=== PATIENT | female | born 1950 | race Caucasian/White ===

== ENCOUNTER → 2020-05-19 08:59 | Outpatient (CLI) | payer MEDICARE, SELFPAY ==
[2020-05-20 07:56] LABS: COVID19 Sendout Not Detected (Not Detect)
== END ==
PROVIDERS: Visit Provider Nurse Practitioner
DX: Z01.812 Encounter for preprocedural laboratory examination (principal)
CPT/HCPCS: 87635

== ENCOUNTER 2020-05-23 11:45 | Inpatient (IN) | payer MEDICARE, SELFPAY ==
[2020-05-15 08:55] VITALS: BMI 23.8
[2020-05-22] VITALS (20 sets, daily range): BP systolic 104–136; BP diastolic 48–74; PULSE 69–91; RESP 8–17; TEMP 35.5–36.4; O2SAT 88–100; BMI 23.8
--- NOTE | 2020-05-22 | DI.RAD.S_ITS ---
PROCEDURE: XR LUMBAR SPINE 2-3V INDICATIONS: L4-5, L5-S1 TLIF TECHNIQUE: 2 views of the lumbar spine were acquired. COMPARISON: None. FINDINGS: Bones: Intraoperative images demonstrate postsurgical changes compatible with L4-L5 and L5-S1 TLIF. Orthopedic hardware is intact. Soft tissues: Overlying bowel gas pattern is normal. No suspicious soft tissue calcifications. IMPRESSION: Expected postsurgical change for L4-L5 and L5-S1 TLIF. Dictated by: Shereen Veras MD, PhD on 05/22/2020 at 11:23 Approved by: Shereen Veras MD, PhD on 05/22/2020 at 11:23
[2020-05-22] MEDS: LACTATED RINGERS 1,000 ML 42 ML IV ×2 (07:14→09:54)
--- NOTE | 2020-05-22 07:22 | PM.HP.1 ---
History of Present Illness History of Present Illness Date Patient Seen: 05/22/20 Time Patient Seen: 07:22 Chief complaint: Tranlaminar interbody Fusion/Lamintomy Narrative: 70-year-old female with pain in the back in the legs. She has had ongoing low back pain for many years but last fall started having increasing pain going down her legs. This goes down the anterior thigh as well as the posterolateral legs all the way to the feet. She has tried physical therapy without relief. She had an injection at [facility] but saw no change in symptoms with this. Her left leg is worse than the right. She has some longstanding numbness along the posterolateral left calf to the foot. The back pain bothers her primarily with activity. The leg pain bothers her whenever she tries to stand or walk. The leg and back were equal to each other. She has tried anti-inflammatories, gabapentin, amitriptyline, and [place] as well. Patient History Medical History BCC (basal cell carcinoma) (Acute) Easy bruisability (Acute) Neuropathy (Acute) Other forms of scoliosis, lumbar region (Acute) Spinal stenosis (Acute) Surgical History History of delivery (Acute) Family & Social History Social History: household members spouse Prior Living Arrangements House Safety & Behavioral: Feels Safe in Current Yes Environment Been Physically Hurt or No Threatened By a Person Suicidal Ideation Description None Suicide Plan Description No Plan Tobacco & Substance use: Smoking Status Never smoker alcohol intake current alcohol intake frequency a few times a month Substance Use Type does not use Meds Home Medications and Allergies Home Medications Medication Instructions Recorded Confirmed Type alpha lipoic acid 300 mg PO BID 05/15/20 05/22/20 History amitriptyline 50 mg PO BEDTIME 05/15/20 05/22/20 History gabapentin 300 mg PO SEEINSTR 05/15/20 05/22/20 History metronidazole 1 applic TOPICAL BID PRN 05/15/20 05/15/20 History naproxen sodium [Aleve] 440 mg PO BID PRN 05/15/20 05/15/20 History Allergies Allergy/AdvReac Type Severity Reaction Status Date / Time No Known Drug Allergies Allergy Verified 05/22/20 06:53 Review of Systems Constitutional Constitutional: Denies chills and Denies fever(s) Respiratory Respiratory: Denies cough Exam Vital Signs (past 8 hours): - 05/22/20 07:01 Temperature 97.5 F L Pulse Rate 88 Respiratory Rate 16 Blood Pressure 134/74 Pulse Oximetry 100 Oxygen Delivery Method Room Air Const Orientation: alert and oriented x3 Resp Auscultation: clear to auscultation bilaterally Cardio Rate: regular rate Rhythm: regular rhythm Back/Spine/Pelvis Other: 5/5 motor both lower extremities intact sensation to both lower extremities except decreased lateral left calf the dorsum of the foot the big toe. 2+ reflexes, negative straight leg raising. Tender over the lower lumbar spinous processes, the lumbosacral junction, the bilateral gluteals. Scoliotic curvature of the lumbar spine with a right convexity. Objective Imaging Lumbar x-rays: My impression: From 08/09/2019 showed degenerative changes with loss of disc height and osteophytes at every level through the lumbar spine. 15 degree curve. Lumbar MRI: My impression: From 08/12/2019 shows mild disc bulging and mild central stenosis and mild bilateral foraminal narrowing from L1 through 4. L4-5: Mild to moderate central stenosis moderate to severe bilateral foraminal narrowing. L5-S1: Mild central mild to moderate right, severe left foraminal narrowing. Assessment & Plan Assessment & Plan narrative: Lumbar stenosis and scoliosis She has failed conservative management. We are going to go ahead with a laminectomy at L4-5 and L5-S1 to decompress her neural foramen. This will also include fusion (TLIF) for her curve as well as the requirements for facetectomies to decompress the neural foramen. All questions been answered. Risks and benefits again discussed and the consent obtained. COVID-19 COVID-19 status: Negative Result date/Date tested (Pos, Neg/Pending): 05/19/20
--- NOTE | 2020-05-22 07:29 | PM.OP.1 ---
Operative Date/Time/Diagnoses Date of procedure: 05/22/20 Time of procedure: 10:46 Pre-op diagnosis: Lumbar stenosis with radiculopathy Lumbar scoliosis Post-op diagnosis: same Procedure & Clinicians Procedure: L4-5, L5-S1 laminectomy L4-5, L5-S1 TLIF (posterior/posterior interbody fusion) with cages L4, L5, S1 screws Iliac crest bone graft aspirate Use of microscope Placement of epidural catheter Same procedure as scheduled: Yes Indications: [age] year old female with intractable pain from stenosis. They had failed conservative management and requested operative intervention. Risks and benefits of surgery were discussed and appropriate consents were obtained. Surgeon: Aly Rodgers Radiology Equipment Servicer: Chayo Oglesby Anesthesia Type: General Operative Notes Findings: None Closure Type: primary Specimen(s): none sent Prosthetic devices, grafts, tissues, transplants, or devices: NuVasive MAS Reline screws Globus Rise cage Applied: catheter Estimated Blood Loss (mL): 20 Blood products transfused: none Procedure in detail: The patient was brought to the operating room and intubated on the table. A time-out was performed. They were then rolled over to the well-padded Efrain table in the prone position. Preoperative antibiotics were given. The back was prepped and draped in the standard sterile fashion. Using fluoroscopy, a 4 cm longitudinal incision was made to the left of the midline. We used Bovie to come down to and split the lumbodorsal fascia. Using fluoroscopy and monitoring, we then percutaneously placed Jamshidi needles down the pedicles of L4, L5, and S1 on the left side. These were changed out to guidewires and then we tapped and then placed the NuVasive MAS Reline screw shanks. We then opened up the retractors and used Bovie to clear up the posterolateral gutter as well as medially along the lamina to the spinous processes. A bur was used to decorticate the transverse processes of L4, L5, and the sacral ala. We brought in the microscope. Using a combination of bur and Kerrison rongeurs, a L5-S1 laminectomy was performed from the left side. We cleared over past the midline and carefully depressed the dura until we were able to decompress the opposite side. We cleared out the neural foramen, which required a facetectomy to adequately decompress everything until the root was free. This completed the laminectomy at L5-S1. This was separate and distinct from the TLIF approach as we were decompressing the canal and the nerves. We then began the TLIF prep. We carefully cleaned up the remainder of the foramen until we could easily retract the exiting root as well as clearing medially below the dura and expose the disc space. The disc was prepped with bipolar and then an annulotomy was performed. We performed a diskectomy using a combination of paddles, eduin, pituitaries, and curettes. We distracted the disc using a paddle and locked the retractor in an open position. We then filled the disc space with Osteocel bone graft. We then placed the globus Rise cage under fluoroscopy and then filled this in with more bone graft. The distraction on the retractor was released to compress down. This completed the posterior interbody fusion portion of the TLIF at L5-S1. We then moved our retractor up to the L4-5 level. We performed a laminectomy at L4-5 with Kerrison and bur. We depressed the dura and reach across to the opposite side to centrally decompress the canal. We cleared out the neural foramen. As at the lower level, this required a facetectomy to free up the nerve root in the foramen. In the in the ball probe could be swept cephalad, caudally, and the foramen and everything was opened. We then began the TLIF prep. We cleaned up the remainder of the foramen until we get easier retract the exiting root as well as clearing medially below the dura to expose the disc space. The disc was prepped with bipolar and then we performed an annulotomy. We used paddles, Eduin, pituitaries, and curettes to perform a diskectomy at L4-5. We then fill the disc space with bone graft and placed another globus Rise cage under fluoroscopy and then filled this with more bone graft. This completed the posterior interbody portion of the TLIF at L4-5. We then placed the screw heads, kaylin, and locked down the set screws. The wound was copiously irrigated. An epidural catheter was then prepped with 100 mcg fentanyl, 1 mg Stadol, 4 mg Duramorph and 4 mL of 0.5% Marcaine. This was placed in the spinal canal by carefully depressing the dura and advancing it 6 cm cephalad under the remaining lamina without resistance. A small stab incision was made over the PSIS. We used a Jamshidi needle to aspirate several mL of bone marrow from the pelvis. This was mixed with the remaining Osteocel and combined with all of the locally harvested bone graft and placed in the posterolateral gutter for the posterior fusion of the TLIF at L4-5 and L5-S1. The fascia was closed. The epidural was then injected without resistance and the catheter was pulled. We then went to the opposite side. Again using fluoroscopy, a 3 cm incision was made and Bovie was used to come down to split the fascia. Using neural monitoring and fluoroscopy, Jamshidi needles were advanced down the pedicles of L4, L5, and S1 on the right side. These were switched over guidewires, tapped, and screws placed. We then placed a kaylin and locked the set screws on this side. The wound was irrigated. The fascia was closed. Vancomycin powder was placed in the wounds. The superficial and skin were closed. A sterile dressing was placed. The patient was then rolled over extubated and brought to recovery room without complications. Complications: none Post-operative Condition: stable Disposition: PACU Plan for aftercare: Outpatient with bed. Anticipate 2-3 days in the hospital.
[2020-05-22] MEDS: CEFAZOLIN 2 GM/100 ML FROZ.PIGGY IV ×3 (07:42→23:27)
--- NOTE | 2020-05-22 08:22 | SUR.OPER ---
Prone on spine table, head in foam head support, padded chest and pelvic supports, gel pad at knees, lower legs supported by pillows; nipples, genitalia and toes free of pressure, arms secured on foam padded arm boards at <90 degrees abduction. Tape over blanket at thigh secured to table.
[2020-05-22] MEDS: SODIUM CHLORIDE 0.9% 1,000 ML, GENTAMICIN 80 MG IRR (08:27)
[2020-05-22] MEDS: THROMBIN (RECOMBINANT) 5,000 UNIT VIAL 5000 UNIT TOP (08:28)
[2020-05-22] MEDS: VANCOMYCIN 1,000 MG VIAL 1000 MG TOP (08:28)
[2020-05-22] MEDS: BUPIVACAINE 0.5% (PF) 4 ML, MORPHINE-PF 4 MG, BUTORPHANOL 1 MG, fentaNYL 100 MCG INJ (08:30)
[2020-05-22] MEDS: OXYCODONE/ACETAMINOPHEN 5/325 TABLET 1 TAB PO ×2 (11:24→11:59)
[2020-05-22] MEDS: ONDANSETRON 4 MG/2 ML INJ IV ×3 (11:24→23:27)
[2020-05-22] MEDS: fentaNYL 100 MCG/2 ML INJ IV ×2 (11:30→11:36)
--- NOTE | 2020-05-22 11:53 | SUR.PHASEI ---
Gave patient IV and po pain medication for c/o pain. States it is getting better.
[2020-05-22] MEDS: LACTATED RINGERS 1,000 ML 125 ML IV ×2 (12:35→20:28)
--- NOTE | 2020-05-22 14:47 | PC.NURSE ---
Post-op: Late entry Arrived to room 218 at 1215. Oriented X3. Initially wide awake, C/O 9/10 back pain and crying. Was given PO pain meds in PACU, so allowed those to work and patient was able to fall asleep. Was on 1L O2, but has been changed to room air w/ cont. pulse ox in place (sats 98-100% at rest). Dressing to low back C/D/I. Denies numbness/tingling/paresthesias. Moving all extremities equally, SCD's to BLE's. Suero to gravity, urine clear yellow. Denies N/V. IVF per orders, site in R wrist WNL. Oriented to room and call light, encouraged to make needs known. Asked RT to bring IS and do teaching with patient.
[2020-05-22] MEDS: HYDROMORPHONE 0.5 MG INJ IV (16:35)
--- NOTE | 2020-05-22 17:14 | PT-IP ANOTE ---
Received PT orders and reviewed chart. Briefly met with pt who became nauseated and unable to participate further while sitting at the edge of the bed. Will follow up with pt morning of 05/23/20.
[2020-05-22] MEDS: METOCLOPRAMIDE 10 MG/2 ML INJ IV (17:43)
--- NOTE | 2020-05-22 21:01 | PC.NURSE ---
Pt nausous. Declining 2099 meds. No c/o of px at this time. Resting well.
--- NOTE | 2020-05-22 21:51 | PC.NURSE ---
Pt refused evening meds due to nausea. Will try to take meds later when she is due for more Zofran. Resting well most of shift. Minimal c/o of pain.
[2020-05-23] VITALS (8 sets, daily range): BP systolic 109–132; BP diastolic 54–68; PULSE 76–91; RESP 14–18; TEMP 36.2–37.5; O2SAT 97–100
[2020-05-23] MEDS: METOCLOPRAMIDE 10 MG/2 ML INJ IV ×2 (00:30→06:59)
[2020-05-23] MEDS: SODIUM CHLORIDE 0.9% FLUSH 10 ML IV ×3 (00:30→21:19)
[2020-05-23] MEDS: hydrOXYzine pamoate 25 MG CAPSULE PO ×2 (00:31→04:07)
[2020-05-23] MEDS: LACTATED RINGERS 1,000 ML 125 ML IV (04:23)
[2020-05-23] MEDS: ONDANSETRON 4 MG/2 ML INJ IV (05:05)
[2020-05-23 05:33] LABS: Hematocrit 34.8 % (36-46); Hemoglobin 11.5 g/dL (12.0-16.0)
--- NOTE | 2020-05-23 08:04 | PM.PNPO.1 ---
Subjective Subjective Date Patient Seen: 05/23/20 Time Patient Seen: 08:04 Interval history: Pain is up as high as 10/10. She has been very nauseated and throwing up and has not had pain medication overnight because of this. Legs are fine it is all pain across the back. Exam Vital Signs (past 8 hours): - 05/23/20 00:05 05/23/20 03:17 Temperature 97.9 F 97.4 F L Pulse Rate 91 H Respiratory Rate 16 16 Blood Pressure 130/54 L 126/57 L Pulse Oximetry 100 100 Oxygen Delivery Method Room Air Oxygen Flow Rate 0 Const General: comfortable Orientation: alert and oriented x3 Back/Spine/Pelvis Other: CDI. 5/5 motor both lower extremities Objective Labs Result Diagrams: 05/23/20 05:10 Labs: Laboratory Results - last 24 hr 05/23/20 05:10 Hgb 11.5 L Hct 34.8 L Assessment & Plan Post-op Postoperative Procedures: Procedures Operation Date: 05/22/20 07:45 Actual Procedures Side Surgeon p L4-S1 laminectomy and instrumented fusion (TLIF) with bone graft Aly Rodgers MD Return to work on nausea. Will try [place] instead of Percocet for pain. Try Ativan as well. Mobilize with PT. This may delay her eventual discharge an extra day. Quality VTE Deep Vein Thrombosis/Pulmonary Embolism Present on Admission: No
[2020-05-23] MEDS: PROCHLORPERAZINE 10 MG/2 ML VIAL IV (08:20)
--- NOTE | 2020-05-23 09:43 | PC.NURSE ---
Addendum entered by Tianna Sainz R.N. 05/23/20 10:46: Compazine effective for patients nausea, ate some crackers and has been able to keep her vicodin 5mg down. She will try and work with physical therapy later, and po medications will also be given if patient not nauseous. Original Note: Patient given compazine and she states that this has been effective for her nausea. She is going to try some crackers now and see if she can hold them down. If so, we will try and give her vicodin for her discomfort. Now she has ice applied to back incision. Her dressing is cdi, denies any numbness or tingling. in room visiting. Suero patent and putting out yellow urine.
[2020-05-23] MEDS: HYDROCODONE/ACET 5/325 TABLET 1 TAB PO ×4 (10:10→21:22)
--- NOTE | 2020-05-23 10:46 | PT.IIE ---
Current Diagnoses Other forms of scoliosis, lumbar region (05/22/20) Spinal stenosis, lumbar region with neurogenic claudication (05/22/20) Surgery Performed Operation Date: 05/22/20 07:45 Actual Procedures p L4-S1 laminectomy and instrumented fusion (TLIF) with bone graft - Aly Rodgers MD Surgical History (Last Reviewed 05/22/20 @ 07:23 by Aly Rodgers MD) History of delivery (Acute) Medical History (Last Reviewed 05/22/20 @ 07:23 by Aly Rodgers MD) BCC (basal cell carcinoma) (Acute) Easy bruisability (Acute) Neuropathy (Acute) Other forms of scoliosis, lumbar region (Acute) Spinal stenosis (Acute) Physical Therapy Inpatient Evaluation/Re-Eval M1 PT/OT-IP Prior Functional Status Start: 05/22/20 12:53 Freq: NEEDED Status: Active Protocol: Document 05/23/20 10:46 AB (Rec: 05/23/20 12:25 AB [id number]) Medical Review Prior Functional Status Medical History Reviewed Yes Communication able to make needs known Mobility and Gait pt stated that she is independent with all mobilities and ambulation without AD Social History Household Members spouse Living Arrangements House Number of Floors (Floors) One Floor Number of Stairs To Enter/Railing? has 3 steps to enter from the garage with L rail ascending Home Environment High Toilet,Tub/Shower Home Equipment Hand Held Shower Employment Status Retired M2 PT-IP Current Condition Start: 05/22/20 12:53 Freq: NEEDED Status: Active Protocol: Document 05/23/20 10:46 AB (Rec: 05/23/20 12:25 AB [id number]) Physical Therapy Current Condition Current Condition Evaluation Date 05/23/20 Treatment Diagnosis s/p L4-5, L5S1 TLIF; difficulty in walking Onset Date 05/22/20 Precautions Lumbar Precautions Log Roll,No Twisting,Limit Bending,Lifting Restriction of 10 lbs,Gait Belt above Incisional Area M3 PT-IP Subjective Start: 05/22/20 12:53 Freq: NEEDED Status: Active Protocol: Document 05/23/20 10:46 AB (Rec: 05/23/20 12:25 AB [id number]) Subjective Physical Therapy Visit Type Type Initial Evaluation Visit Start Time 10:46 Visit Stop Time 11:13 Total Visit Minutes 27 Number of CRACKER DOUGH MIXER Visits 0 Physical Therapy Visit Comments Patient Comments pt is agreeable to do PT Therapy Pain Assessment Pain When Pain Assessed At Rest Pain Present Pain Present Pain Reported Location back Intensity 10 Scale Used Numeric (0 - 10) Pain Management Techniques Re-positioning,Timing of Activity with Medications M4 PT-IP Mobility and Gait Start: 05/22/20 12:53 Freq: NEEDED Status: Active Protocol: Document 05/23/20 10:46 AB (Rec: 05/23/20 12:25 AB [id number]) PT-Bed Mobility Assessment Rolling Type of Rolling Log Rolling Level of Assist Standby Assistance Supine to Sit Supine to Sit Standby Assistance Scooting Scooting to Edge of Bed Standby Assistance PT-Transfer Assessment Sit to and From Stand Sit to and from Stand Contact Guard Assistance,1 Person Assistance,Use of Upper Extremities Equipment Transfer Assistive Device Gait Belt,Front Wheeled Walker Orthotic/Prosthetic Devices or Brace: No Transfers Transfer Destination Chair Transfer Technique ambulated using FWW Transfer Ability Level of Assist Contact Guard Assistance,1 Person Assistance,Use of Upper Extremities Comments Mobility Comments reviewed back precautions and log roll with pt. pt completed log roll supine to sit SBA and cues. pt was able to sit on EOB SBA. c/o nausea. BP 136/68. pt completed sit to stand CGA and completed ambulation using FWW ~ 20 ft. pt rested on chair. agreed to do more ambulation. completed sit to stand from chair, SBA to CGA and ambulated in room using FWW ~ 20 ft CGA. pt agreed to sit up on chair. left pt with OT. Spouse in room with pt during PT session. Gait Assessment Gait Gait Assistance Required: Contact Guard Assist Distance (Feet) 20 Able to Maintain Weight Bearing Status Yes During Gait Assistive Devices Assistive Device Gait Belt,Front Wheeled Walker Orthotic/Prosthetic Devices or Brace: No Gait Deviations General Gait Pattern Antalgic,Decreased Stride Length,Decreased Feet Clearance Factors Limiting Gait Function Factors Limiting Gait Function Decreased Activity Tolerance, Decreased Strength,Limited Range of Motion,Pain,Poor Balance,Poor Safety Awareness PT-Balance Assessment Sitting Balance and Reactions Static Sitting Balance Ability Good Dynamic Sitting Balance Ability Good Standing Balance and Reactions Static Standing Balance Ability Fair Dynamic Standing Balance Ability Fair Device Used FWW M5 PT-IP Objective Assessments Start: 05/22/20 12:53 Freq: NEEDED Status: Active Protocol: Document 05/23/20 10:46 AB (Rec: 05/23/20 12:25 AB [id number]) Orientation Orientation/Cognition Level of Alertness Alert Orientation Name,Age,Place,Situation Language Function Ability No Deficits Noted Safety Awareness Decreased Safety Awareness Memory Description No Deficits Noted Gross Range of Motion Lower Extremity ROM Assessment Within Functional Limits Strength Lower Extremity Strength Assessment Right Impaired Hip 3+/5 Knee 3+/5 Coordination Assessment Gross Coordination Gross Coordination WNL Muscle Tone Muscle Tone WNL Yes M6 PT-IP Treatment Start: 05/22/20 12:53 Freq: NEEDED Status: Active Protocol: Document 05/23/20 10:46 AB (Rec: 05/23/20 12:25 AB [id number]) Physical Therapy Treatment Education Education Provided Precautions,Weight Bearing Status,Post-Op Packet,Safety M7 PT-IP Assessment and Plan Start: 05/22/20 12:53 Freq: NEEDED Status: Active Protocol: Document 05/23/20 10:46 AB (Rec: 05/23/20 12:29 AB [id number]) PT Summary Assessment and Plan Potential Rehabilitation Potential Good Status of Condition at Evaluation Evolving Summary Impairments Pain,ROM,Strength,Balance, Coordination,Sensation,Tone, Cognition,Bed Mobility, Transfers,Gait,Activity Tolerance Assessment Summary pt requiring SBA to CGA with mobility but with c/o increase back pain and slight nausea with initial activity. pt plans to go home with spouse to assist her and will likely progress during hospital stay. pt does not have any DME at home and will let PT know if they are able to get/borrow a FWW. will conduct caregiver training when appropriate and will also complete stair climbing training. Goals Bed Mobility Goal Independent Transfer Goal Independent,Front Wheeled Walker Gait Goal Independent,Front Wheel Walker Gait Distance 150 Other Goals up/down 3 steps L rail ascending SBA Days to Meet Goals 3 Frequency of Treatment Frequency Of Treatment Twice a Day Treatment Plan Physical Therapy Treatment Plan Bed Mobility Training,Transfer Training,Gait Training, Therapeutic Exercise,Balance Retraining,Post Op Education, Discharge Planning,Hot or Cold Pack,Neuromuscular Re-ed, Coordination Retraining,Manual Therapy Other Recommendations and Next Treatment caregiver training, stair Focus climbing, bed mobility, ambulation Recommendations To Nursing Amount of Assist Needed 1 Person Assist Discharge Recommendations PT Discharge Recommendations Home with Assistance Equipment Needed for Home Before FWW: if unable to obtain one Discharge Transportation Needs at Discharge Private Vehicle
--- NOTE | 2020-05-23 11:36 | OT.IP.EVAL ---
Current Diagnoses Other forms of scoliosis, lumbar region (05/23/20) Spinal stenosis, lumbar region with neurogenic claudication (05/23/20) Surgery Performed Operation Date: 05/22/20 07:45 Actual Procedures p L4-S1 laminectomy and instrumented fusion (TLIF) with bone graft - Aly Rodgers MD Past Medical History (Last Reviewed 05/22/20 @ 07:23 by Aly Rodgers MD) BCC (basal cell carcinoma) (Acute) Easy bruisability (Acute) Neuropathy (Acute) Other forms of scoliosis, lumbar region (Acute) Spinal stenosis (Acute) Surgical History (Last Reviewed 05/22/20 @ 07:23 by Aly Rodgers MD) History of delivery (Acute) Occupational Therapy Inpatient Evaluation/Re-Eval M1 PT/OT-IP Prior Functional Status Start: 05/23/20 13:18 Freq: NEEDED Status: Active Protocol: Document 05/23/20 13:19 [facility] (Rec: 05/23/20 13:37 [facility] [id number]) Medical Review Prior Functional Status Medical History Reviewed Yes Communication able to make needs known Mobility and Gait pt stated that she is independent with all mobilities and ambulation without AD Activities of Daily Living and IADL's Completely independent with all ADL, IADL, and did her own medications. Pt's pays the bills. Social History Household Members spouse Living Arrangements House Number of Floors (Floors) One Floor Number of Stairs To Enter/Railing? has 3 steps to enter from the garage with L rail ascending Home Environment High Toilet,Tub/Shower Home Equipment Hand Held Shower Employment Status Retired M2 OT-IP Current Condition Start: 05/23/20 13:18 Freq: Status: Active Protocol: Document 05/23/20 13:19 [facility] (Rec: 05/23/20 13:37 [facility] [id number]) Occupational Therapy Current Condition Current Condition Evaluation Date 05/23/20 Treatment Diagnosis Lumbar stenosis, s/p L4-S1 laminectomy and instrumental fusion (TLIF) Diagnosis Onset Date 05/22/20 Post Operative Precautions Lumbar Precautions Log Roll,No Twisting,Limit Bending,Lifting Restriction of 10 lbs,Gait Belt above Incisional Area Weight Bearing Status Weight Bearing Status Weight Bear as Tolerated M3 OT- IP Subjective and Pain Start: 05/23/20 13:18 Freq: Status: Active Protocol: Document 05/23/20 13:19 [facility] (Rec: 05/23/20 13:37 [facility] [id number]) OT- Subjective Occupational Therapy Visit Type Type Initial Evaluation Visit Start Time 10:53 Visit Stop Time 11:36 Total Visit Minutes 42 Occupational Therapy Visit Comments Patient Comments Pt's present, PT there for beginning of the session. Patient/Caregiver Goals To go home. OT Pain Assessment Pain When Pain Assessed At Rest Pain Present Pain Present Pain Reported Location back Intensity 9 Scale Used Numeric (0 - 10) M4 OT- IP ADL's Start: 05/23/20 13:18 Freq: Status: Active Protocol: Document 05/23/20 13:19 [facility] (Rec: 05/23/20 13:37 [facility] [id number]) OT ADL-Grooming General Evaluation Grooming Ability Standby Assistance Areas Needing Assistance Retrieving/Set-up of Grooming Items Comments OT Grooming Comments Set-up to wash her face while seated. Pt too nauseous to try to complete grooming needs at the sink at this time. Educated best to spit into a cup or bend at her hips to best follow back precautions for grooming needs. OT ADL-Dressing General Eval Lower Body Dressing Ability Maximum Assistance Areas Needing Assistance Socks Comments OT Dressing Comments Beginning to educate pt on use of lead welder and sock aid and then pt became nauseated and wanting to get back to the bed . OT ADL-Toileting General Evaluation Toileting Ability Total Assistance Comments OT Toileting Comments Suero in place. OT ADL-Bathing Comments OT Bathing Comments Not at this time. M5 OT- IP IADL's Start: 05/23/20 13:18 Freq: Status: Active Protocol: Document 05/23/20 13:19 [facility] (Rec: 05/23/20 13:37 [facility] [id number]) OT-Instrumental Activities of Daily Living Deficits IADL Deficits Identified Deficits Home Safety Awareness Awareness of Need for Assistance at Home Good Awareness Ability to Problem Solve Emergency Able to Problem Solve Situations Medication Management Medication Management No Deficits Identified Money Management Money Management Caregiver Provides Assistance Meal Preparation Meal Preparation Caregiver Provides Assist General Scrap Worker General Scrap Worker Caregiver Provides Assist Driving Driving Caregiver Provides Assist M6 OT- IP Functional Cognition Start: 05/23/20 13:18 Freq: Status: Active Protocol: Document 05/23/20 13:19 [facility] (Rec: 05/23/20 13:37 [facility] [id number]) Cognitive Factors Limiting Selfcare Function Cognitive Ability Level of Alertness Alert Patient Orientation Name,Place,Situation Attention Span Ability Capable of Focused Attention, Capable of Sustained Attention Ability to Follow Commands Able to Follow One Step Commands Safety Awareness Decreased Recall of Precautions,Decreased Ability to Apply Precautions, Underestimates Need for Assistance Cognitive Comments Cognitive Assessment Comments Pt feeling very nauseated and in pain and having difficulty to to recall the back precautions. Pt needing verbal cues for back precautions and FWW safety. OT- Vision and Hearing OT- Hearing Assessment OT- Hearing Assessment WFL M7 OT- IP Mobility and Balance Start: 05/23/20 13:18 Freq: Status: Active Protocol: Document 05/23/20 13:19 [facility] (Rec: 05/23/20 13:37 [facility] [id number]) OT- Bed Mobility Assessment Rolling Type of Rolling Roll to Left Level of Assistance Standby Assistance Supine to Sit Supine to Sit Assist Standby Assistance,1 Person Assistance Sit to Supine Sit to Supine Assist Contact Guard Assistance,1 Person Assistance OT-Transfer Assessment Sit to and From Stand Sit to and from Stand Contact Guard Assistance Transfers Transfer Ability Contact Guard Assistance Technique Transfer Destination Bed,Chair Transfer Technique Stand Step Pivot Devices Transfer Assistive Devices Gait Belt,Front Wheeled Walker Comments Mobility Comments Pt SBA fro bed mobility out of the bed and needing CGA back in the bed. CGA with FWW for balance. Pt's BP stable 132/ 69 . OT- Balance Assessment Sitting Balance and Reactions Static Sitting Balance Ability Normal Dynamic Sitting Balance Ability Good Standing Balance and Reactions Static Standing Balance Ability Good M8 OT- IP Objective Assessments Start: 05/23/20 13:18 Freq: Status: Active Protocol: Document 05/23/20 13:19 [facility] (Rec: 05/23/20 13:37 [facility] [id number]) OT Gross Range of Motion Upper Extremity Range of Motion Assessment Within Functional Limits OT Strength Upper Extremity Strength Assessment Within Functional Limits M9 OT- IP Assessment and Plan Start: 05/23/20 13:18 Freq: Status: Active Protocol: Document 05/23/20 13:19 [facility] (Rec: 05/23/20 13:37 [facility] [id number]) OT Summary Assessment and Plan Potential Rehabilitation Potential Good Analytic Complexity at Evaluation Low Summary OT Impairments Pain,Balance,Functional Mobility,Grooming,Dressing, Toileting,Bathing,Toilet Transfers,Shower Transfers, Activity Tolerance Progress Towards Goals Slow Progress due to Pain,Slow Progress due to Medical Issues,Slow Progress due to Activity Tolerance Assessment Summary Pt low complexity and main barrier are pain, steps, and now needing one person assist for ADL and functional mobility needs. Pt became nauseated due to increased pain Goals Grooming Goal Independent Dressing Goal Independent Toileting Goal Independent Bathing Goal Standby Assistance Toilet Transfer Goal Independent Shower Transfer Goal Standby Assistance Patient/Caregiver Education Goal Demonstrate Post-Op Precautions,Caregiver Independent Assisting Patient Days to Meet Goals 5 Frequency of Treatment Frequency Of Treatment Once a Day Treatment Plan OT Treatment Plan ADL Training,Functional Mobility,Patient/Family Education,Discharge Planning Other Treatment Recommendations and Next Practice back precautions for Treatment Focus ADl needs. Caregiver training. Discharge Recommendations OT Discharge Recommendations Home with Assistance Home Equipment Needs Shower chair Transportation Needs at Discharge Private Vehicle
[2020-05-23] MEDS: CELECOXIB 200 MG CAPSULE PO ×2 (13:38→21:18)
[2020-05-23] MEDS: GABAPENTIN 600 MG TABLET PO ×2 (13:38→21:22)
[2020-05-23] MEDS: DOCUSATE 100 MG CAPSULE PO ×2 (13:38→21:18)
--- NOTE | 2020-05-23 14:28 | PT.IPTN ---
Current Diagnoses Other forms of scoliosis, lumbar region (05/23/20) Spinal stenosis, lumbar region with neurogenic claudication (05/23/20) Surgery Performed Operation Date: 05/22/20 07:45 Actual Procedures p L4-S1 laminectomy and instrumented fusion (TLIF) with bone graft - Aly Rodgers MD Physical Therapy Treatment Note M2 PT-IP Current Condition Start: 05/22/20 12:53 Freq: NEEDED Status: Active Protocol: Document 05/23/20 10:46 [facility] (Rec: 05/23/20 12:25 [facility] [id number]) Physical Therapy Current Condition Current Condition Evaluation Date 05/23/20 Treatment Diagnosis s/p L4-5, L5S1 TLIF; difficulty in walking Onset Date 05/22/20 Precautions Lumbar Precautions Log Roll,No Twisting,Limit Bending,Lifting Restriction of 10 lbs,Gait Belt above Incisional Area M3 PT-IP Subjective Start: 05/22/20 12:53 Freq: NEEDED Status: Active Protocol: Document 05/23/20 14:28 [facility] (Rec: 05/23/20 16:17 [facility] [id number]) Subjective Physical Therapy Visit Type Type Treatment Note Visit Start Time 14:28 Visit Stop Time 14:38 Total Visit Minutes 10 Number of FLOWER POT PRESS OPERATOR Visits 0 Physical Therapy Visit Comments Patient Comments pt agreeable to do PT. Therapy Pain Assessment Pain When Pain Assessed At Rest Pain Present Pain Present Pain Reported Location back Intensity 7 Scale Used Numeric (0 - 10) Pain Management Techniques Distraction,Re-positioning, Timing of Activity with Medications M4 PT-IP Mobility and Gait Start: 05/22/20 12:53 Freq: NEEDED Status: Active Protocol: Document 05/23/20 14:28 [facility] (Rec: 05/23/20 16:17 [facility] [id number]) PT-Bed Mobility Assessment Rolling Type of Rolling Log Rolling Level of Assist Standby Assistance Supine to Sit Supine to Sit Standby Assistance Sit to Supine Sit to Supine Standby Assistance Scooting Scooting to Edge of Bed Standby Assistance Scooting Up and Down in Bed Standby Assistance PT-Transfer Assessment Sit to and From Stand Sit to and from Stand Minimal Assistance,1 Person Assistance,Use of Upper Extremities Equipment Transfer Assistive Device Gait Belt,Front Wheeled Walker Orthotic/Prosthetic Devices or Brace: No Comments Mobility Comments pt in bed but agreeable to do PT. completed log roll bed mobility supine to sit SBA. completed sit to stand min A and cues and ambulated in room 30 ft x 2 using FWW min A and cues. pt requested to go back to bed afterwards. completed log roll sit to supine SBA. positioned pt in bed. call light and table placed within reach. Gait Assessment Gait Gait Assistance Required: Minimum Assistance,1 Person Assist Distance (Feet) 30 Able to Maintain Weight Bearing Status Yes During Gait Assistive Devices Assistive Device Gait Belt,Front Wheeled Walker Orthotic/Prosthetic Devices or Brace: No Gait Deviations General Gait Pattern Antalgic,Decreased Stride Length,Decreased Feet Clearance Factors Limiting Gait Function Factors Limiting Gait Function Decreased Activity Tolerance, Decreased Strength,Limited Range of Motion,Pain,Poor Balance Comments Gait Comments pls refer to mobility section for details Stair Climbing Assessment Comments Stair Climbing Comments pt refused to do stairs today. stated that she will do it tomorrow M5 PT-IP Objective Assessments Start: 05/22/20 12:53 Freq: NEEDED Status: Active Protocol: Document 05/23/20 10:46 [facility] (Rec: 05/23/20 12:25 [facility] [id number]) Orientation Orientation/Cognition Level of Alertness Alert Orientation Name,Age,Place,Situation Language Function Ability No Deficits Noted Safety Awareness Decreased Safety Awareness Memory Description No Deficits Noted Gross Range of Motion Lower Extremity ROM Assessment Within Functional Limits Strength Lower Extremity Strength Assessment Right Impaired Hip 3+/5 Knee 3+/5 Coordination Assessment Gross Coordination Gross Coordination WNL Muscle Tone Muscle Tone WNL Yes M6 PT-IP Treatment Start: 05/22/20 12:53 Freq: NEEDED Status: Active Protocol: Document 05/23/20 14:28 [facility] (Rec: 05/23/20 16:17 [facility] [id number]) Physical Therapy Treatment Education Education Provided Precautions,Safety M7 PT-IP Assessment and Plan Start: 05/22/20 12:53 Freq: NEEDED Status: Active Protocol: Document 05/23/20 14:28 [facility] (Rec: 05/23/20 16:17 AB [id number]) PT Summary Assessment and Plan Potential Rehabilitation Potential Good Summary Impairments Pain,ROM,Strength,Balance, Coordination,Sensation,Tone, Cognition,Bed Mobility, Transfers,Gait,Activity Tolerance Progress Towards Goals Slow Progress due to Pain Assessment Summary pt continues to require min A with mobility and c/o increase backpain affecting mobility and activity tolerance. pt stated that spouse will come in tomorrow morning. informed pt that caregiver training will be conducted tomorrow and pt agreed. pt also wants FWW dispensed to her. PT to obtain doctor's order for FWW. will continue to assess pt's progress. Goals Bed Mobility Goal Independent Transfer Goal Independent,Front Wheeled Walker Gait Goal Independent,Front Wheel Walker Gait Distance 150 Other Goals up/down 3 steps L rail ascending SBA Days to Meet Goals 3 Frequency of Treatment Frequency Of Treatment Twice a Day Treatment Plan Physical Therapy Treatment Plan Bed Mobility Training,Transfer Training,Gait Training, Therapeutic Exercise,Balance Retraining,Post Op Education, Discharge Planning,Hot or Cold Pack,Neuromuscular Re-ed, Coordination Retraining,Manual Therapy Other Recommendations and Next Treatment caregiver training, stair Focus climbing, bed mobility, ambulation Recommendations To Nursing Amount of Assist Needed 1 Person Assist Discharge Recommendations PT Discharge Recommendations Home with Assistance Equipment Needed for Home Before FWW: if unable to obtain one Discharge Transportation Needs at Discharge Private Vehicle
--- NOTE | 2020-05-23 16:05 | CM.DPNOTE ---
DCP Met w/patient and spouse, explained SW role. Patient hopeful to DC home tomorrow and feels confident about the support and assist available from spouse and family/friends. Likely no barriers to safe DC home tomorrow, will follow closely for any DC needs or concerns that arise. GISELA Sun
[2020-05-23] MEDS: AMITRIPTYLINE 25 MG TABLET 50 MG PO (21:18)
[2020-05-23] MEDS: SENNOSIDES 8.6 MG TABLET 17.2 MG PO (21:18)
[2020-05-24] VITALS: BP 111/50; PULSE 76; RESP 16; TEMP 36.2; O2SAT 98
[2020-05-24] MEDS: HYDROCODONE/ACET 5/325 TABLET 1 TAB PO (03:21)
[2020-05-24 03:32] VITALS: BP 140/69; PULSE 95; RESP 16; TEMP 37.1; O2SAT 96
[2020-05-24] MEDS: OXYCODONE IR 5 MG TABLET PO (04:05)
--- NOTE | 2020-05-24 07:24 | PM.PNPO.1 ---
Subjective Subjective Date Patient Seen: 05/24/20 Time Patient Seen: 07:24 Interval history: She is doing better. No more nausea. Pain is about a 7/10. Exam Vital Signs (past 8 hours): - 05/24/20 00:00 05/24/20 03:32 Temperature 97.1 F L 98.8 F Pulse Rate 76 95 H Respiratory Rate 16 16 Blood Pressure 111/50 L 140/69 Pulse Oximetry 98 96 Oxygen Delivery Method Room Air Oxygen Flow Rate 0 Const Orientation: alert and oriented x3 Back/Spine/Pelvis Other: CDI. 5/5 motor both lower extremities. Objective Labs Result Diagrams: 05/23/20 05:10 Assessment & Plan Post-op Postoperative Procedures: Procedures Operation Date: 05/22/20 07:45 Actual Procedures Side Surgeon p L4-S1 laminectomy and instrumented fusion (TLIF) with bone graft Aly Rodgers MD She is doing better today. Mobilize with physical therapy. If she is doing very well and independent by this afternoon she could go home but I anticipate probably tomorrow. Quality VTE Deep Vein Thrombosis/Pulmonary Embolism Present on Admission: No
[2020-05-24] MEDS: DOCUSATE 100 MG CAPSULE PO (07:54)
[2020-05-24] MEDS: CELECOXIB 200 MG CAPSULE PO (07:54)
[2020-05-24] MEDS: HYDROCODONE/ACET 5/325 TABLET 2 TAB PO ×2 (07:55→12:05)
[2020-05-24] MEDS: GABAPENTIN 300 MG CAPSULE PO (07:55)
[2020-05-24 08:00] VITALS: BP 119/75; PULSE 96; RESP 16; TEMP 36.9; O2SAT 97
--- NOTE | 2020-05-24 09:50 | PT.IPTN ---
Current Diagnoses Other forms of scoliosis, lumbar region (05/23/20) Spinal stenosis, lumbar region with neurogenic claudication (05/23/20) Surgery Performed Operation Date: 05/22/20 07:45 Actual Procedures p L4-S1 laminectomy and instrumented fusion (TLIF) with bone graft - Aly Rodgers MD Physical Therapy Treatment Note M2 PT-IP Current Condition Start: 05/22/20 12:53 Freq: NEEDED Status: Discharge Protocol: Document 05/23/20 10:46 [facility] (Rec: 05/23/20 12:25 AB [id number]) Physical Therapy Current Condition Current Condition Evaluation Date 05/23/20 Treatment Diagnosis s/p L4-5, L5S1 TLIF; difficulty in walking Onset Date 05/22/20 Precautions Lumbar Precautions Log Roll,No Twisting,Limit Bending,Lifting Restriction of 10 lbs,Gait Belt above Incisional Area M3 PT-IP Subjective Start: 05/22/20 12:53 Freq: NEEDED Status: Discharge Protocol: Document 05/24/20 09:50 AB (Rec: 05/24/20 13:33 AB [id number]) Subjective Physical Therapy Visit Type Type Treatment Note Visit Start Time 09:50 Visit Stop Time 10:35 Total Visit Minutes 45 Number of ACCESS CONTROL OFFICER Visits 0 Physical Therapy Visit Comments Patient Comments pt is agreeable to do PT Therapy Pain Assessment Pain When Pain Assessed At Rest Pain Present Pain Present Pain Reported Location back Intensity 6 Scale Used Numeric (0 - 10) Pain Management Techniques Modification of Treatment, Timing of Activity with Medications M4 PT-IP Mobility and Gait Start: 05/22/20 12:53 Freq: NEEDED Status: Discharge Protocol: Document 05/24/20 09:50 [facility] (Rec: 05/24/20 13:33 AB [id number]) PT-Bed Mobility Assessment Rolling Type of Rolling Log Rolling Level of Assist Standby Assistance Supine to Sit Supine to Sit Standby Assistance Sit to Supine Sit to Supine Standby Assistance Scooting Scooting to Edge of Bed Standby Assistance PT-Transfer Assessment Sit to and From Stand Sit to and from Stand Standby Assistance Equipment Transfer Assistive Device None,Gait Belt Transfers Transfer Destination Bed,Chair Transfer Technique ambulated Transfer Ability Level of Assist Standby Assistance Comments Mobility Comments pt just finished with OT and spouse in room. pt is getting ready to d/c home. pt does not feel that she needs a FWW. ambulated in room without AD requiring CGA but with usteady antalgic gait. pt stated that she has a high bed at home and uses a step stool to get into the bed.. adjusted bed to pt's bed height at home. pt able to sit on EOB. instructed spouse to position step juliocesar under pt's LE for pt to be able to scoot back better and pt completed. stated that it was better with positioning in bed. informed pt that she does not have to step up on the step stool to be able to get into her bed. pt and spouse agreed. informed pt regarding safety and use of FWW for long distance ambulation. pt ambulated towards the stair using FWW SBA ~ 250 ft. Pt tends to cross RLE in front of LLE and with decrease RLE elevation. instructed to correct and pt needs occasional reminders. completed up/down steps using L rail with pt holding on with both hands. spouse educated and counter demonstrated on how to assist pt. pt ambulated back to her room. instructed and educated spouse on how to use safety belt and how to assist pt. spouse was able to don/doff safety belt on. pt agreed to stay up on chair. call light and table placed within reach. pt agreed to use FWW. educated on safety and that she may require further PT as an outpt and pt agreed. Gait Assessment Gait Gait Assistance Required: Standby Assistance Distance (Feet) 250 Able to Maintain Weight Bearing Status Yes During Gait Assistive Devices Assistive Device None,Gait Belt,Front Wheeled Walker Gait Deviations General Gait Pattern Antalgic,Decreased Stride Length,Decreased Feet Clearance Factors Limiting Gait Function Factors Limiting Gait Function Decreased Activity Tolerance, Decreased Strength,Limited Range of Motion,Pain,Poor Balance,Poor Safety Awareness Comments Gait Comments pls refer to mobility section for details Stair Climbing Assessment Evaluation Level of Assist On Stairs Minimal Assistance,1 Person Assistance Devices Stair Climbing Assistive Devices Left Railing Technique/Endurance Stair Climbing Direction Ascend and Descend Stair Climbing Technique Step to Step Number of Steps Climbed 3 Stair Climbing Set # Repetitions (reps) 4 Comments Stair Climbing Comments caregiver training completed and spouse was able to assist pt safely M5 PT-IP Objective Assessments Start: 05/22/20 12:53 Freq: NEEDED Status: Discharge Protocol: Document 05/23/20 10:46 AB (Rec: 05/23/20 12:25 AB [id number]) Orientation Orientation/Cognition Level of Alertness Alert Orientation Name,Age,Place,Situation Language Function Ability No Deficits Noted Safety Awareness Decreased Safety Awareness Memory Description No Deficits Noted Gross Range of Motion Lower Extremity ROM Assessment Within Functional Limits Strength Lower Extremity Strength Assessment Right Impaired Hip 3+/5 Knee 3+/5 Coordination Assessment Gross Coordination Gross Coordination WNL Muscle Tone Muscle Tone WNL Yes M6 PT-IP Treatment Start: 05/22/20 12:53 Freq: NEEDED Status: Discharge Protocol: Document 05/24/20 09:50 AB (Rec: 05/24/20 13:33 AB [id number]) Physical Therapy Treatment Education Education Provided Precautions,Safety Equipment Issued Equipment Type and Company FWW: dispensed and pt signed papers M7 PT-IP Assessment and Plan Start: 05/22/20 12:53 Freq: NEEDED Status: Discharge Protocol: Document 05/24/20 09:50 AB (Rec: 05/24/20 13:33 AB [id number]) PT Summary Assessment and Plan Potential Rehabilitation Potential Good Summary Impairments Pain,ROM,Strength,Balance,Bed Mobility,Transfers,Gait, Activity Tolerance Progress Towards Goals Progressing Toward Goals Assessment Summary pt is requiring SBA with transfers and ambulation and min A with stair climbing. pt plans to go home with spouse to assist her. caregiver training completed and spouse was able to assist pt safely. pt may go home when stable. Goals Bed Mobility Goal Independent Transfer Goal Independent,Front Wheeled Walker Gait Goal Independent,Front Wheel Walker Gait Distance 150 Other Goals up/down 3 steps L rail ascending SBA Days to Meet Goals 3 Frequency of Treatment Frequency Of Treatment Twice a Day Treatment Plan Physical Therapy Treatment Plan Bed Mobility Training,Transfer Training,Gait Training, Therapeutic Exercise,Balance Retraining,Post Op Education, Discharge Planning,Hot or Cold Pack,Neuromuscular Re-ed, Coordination Retraining,Manual Therapy Other Recommendations and Next Treatment caregiver training, stair Focus climbing, bed mobility, ambulation Recommendations To Nursing Amount of Assist Needed 1 Person Assist Discharge Recommendations PT Discharge Recommendations Home with Assistance Transportation Needs at Discharge Private Vehicle
--- NOTE | 2020-05-24 10:11 | OT.IP.TRT ---
Current Diagnoses Other forms of scoliosis, lumbar region (05/23/20) Spinal stenosis, lumbar region with neurogenic claudication (05/23/20) Surgery Performed Operation Date: 05/22/20 07:45 Actual Procedures p L4-S1 laminectomy and instrumented fusion (TLIF) with bone graft - Aly Rodgers MD Occupational Therapy Treatment Note M2 OT-IP Current Condition Start: 05/23/20 13:18 Freq: Status: Active Protocol: Document 05/23/20 13:19 [facility] (Rec: 05/23/20 13:37 [facility] [id number]) Occupational Therapy Current Condition Current Condition Evaluation Date 05/23/20 Treatment Diagnosis Lumbar stenosis, s/p L4-S1 laminectomy and instrumental fusion (TLIF) Diagnosis Onset Date 05/22/20 Post Operative Precautions Lumbar Precautions Log Roll,No Twisting,Limit Bending,Lifting Restriction of 10 lbs,Gait Belt above Incisional Area Weight Bearing Status Weight Bearing Status Weight Bear as Tolerated M3 OT- IP Subjective and Pain Start: 05/23/20 13:18 Freq: Status: Active Protocol: Document 05/24/20 09:58 [facility] (Rec: 05/24/20 10:10 [facility] [id number]) OT- Subjective Occupational Therapy Visit Type Type Treatment Note Visit Start Time 09:04 Visit Stop Time 10:52 Total Visit Minutes 48 Occupational Therapy Visit Comments Patient Comments Pt wanting to shower and present for caregiver training. Patient/Caregiver Goals TO go home. OT Pain Assessment Pain When Pain Assessed At Rest Pain Present Pain Present Pain Reported Location back Intensity 5 Scale Used Numeric (0 - 10) M4 OT- IP ADL's Start: 05/23/20 13:18 Freq: Status: Active Protocol: Document 05/24/20 09:58 [facility] (Rec: 05/24/20 10:10 [facility] [id number]) OT [id number] General Evaluation Self-Feeding Ability Independent OT ADL-Grooming General Evaluation Grooming Ability Independent OT ADL-Dressing General Eval Upper Body Dressing Ability Independent Lower Body Dressing Ability Minimal Assistance Comments OT Dressing Comments Assist to get leggings on over her feet and to help to tighten shoes. OT ADL-Toileting Comments OT Toileting Comments Pt not having to go to the bathroom. OT ADL-Bathing Bathing Type Bathing Type Shower General Evaluation Bathing Ability Minimal Assistance Areas Needing Assistance Wash/Dry Back Devices Bathing Equipment Hand Held Shower Sprayer, Shower Chair without Arms,Grab Bars Comments OT Bathing Comments Pt needing use of grab bar for steadying while standing to do pericare needs and needing [place] for balance while trying to raise her foot up to the shower chair to wash her legs. Educated best to have a shower chair to sit down to and then use of long handled sponge to wash her feet or to assist. Pt does not have grab bars in the shower and best to just sit for showering needs at this time. M5 OT- IP IADL's Start: 05/23/20 13:18 Freq: Status: Active Protocol: Document 05/23/20 13:19 [facility] (Rec: 05/23/20 13:37 [facility] [id number]) OT-Instrumental Activities of Daily Living Deficits IADL Deficits Identified Deficits Home Safety Awareness Awareness of Need for Assistance at Home Good Awareness Ability to Problem Solve Emergency Able to Problem Solve Situations Medication Management Medication Management No Deficits Identified Money Management Money Management Caregiver Provides Assistance Meal Preparation Meal Preparation Caregiver Provides Assist Steward/Stewardess Economy Class Steward/Stewardess Economy Class Caregiver Provides Assist Driving Driving Caregiver Provides Assist M6 OT- IP Functional Cognition Start: 05/23/20 13:18 Freq: Status: Active Protocol: Document 05/24/20 09:58 [facility] (Rec: 05/24/20 10:10 [facility] [id number]) Cognitive Factors Limiting Selfcare Function Cognitive Ability Level of Alertness Alert Patient Orientation Name,Age,Birthday,Month,Date, Year,Day of Week,Place, Situation Attention Span Ability Capable of Focused Attention, Capable of Sustained Attention Ability to Follow Commands Able to Follow Multi-Step Commands Memory Description No Deficits Noted Safety Awareness Decreased Ability to Apply Precautions Cognitive Comments Cognitive Assessment Comments Pt needs cue to think things through to incorporate back precautions for needs. Mainly to remember not to twist. M7 OT- IP Mobility and Balance Start: 05/23/20 13:18 Freq: Status: Active Protocol: Document 05/24/20 09:58 [facility] (Rec: 05/24/20 10:10 [facility] [id number]) OT-Transfer Assessment Sit to and From Stand Sit to and from Stand Standby Assistance Transfers Transfer Ability Standby Assistance Devices Transfer Assistive Devices None,Front Wheeled Walker Comments Mobility Comments Pt independent with FWW in the room and SBA without and needing CGA while stepping into the shower. Pt has a high bed and able to practice to backing up to scoot her bottom up into the bed and get in. Pt states also has a step that she can use to help step up to get into the bed. PT to go over with pt and to determine whether pt will need to have a FWW. OT- Gait Assessment Comments Gait Ability Comments SBA for short level distances in the room without a device. M8 OT- IP Objective Assessments Start: 05/23/20 13:18 Freq: Status: Active Protocol: Document 05/23/20 13:19 [facility] (Rec: 05/23/20 13:37 [facility] [id number]) OT Gross Range of Motion Upper Extremity Range of Motion Assessment Within Functional Limits OT Strength Upper Extremity Strength Assessment Within Functional Limits M9 OT- IP Assessment and Plan Start: 05/23/20 13:18 Freq: Status: Active Protocol: Document 05/24/20 09:58 [facility] (Rec: 05/24/20 10:10 [facility] [id number]) OT Summary Assessment and Plan Potential Rehabilitation Potential Good Analytic Complexity at Evaluation Low Summary OT Impairments Functional Mobility,Dressing, Bathing,Shower Transfers Progress Towards Goals Progressing Toward Goals Assessment Summary Pt much improved today and able to go over caregiver training with pt's for ADL needs and also educated him on proper auto body painter especially to assist to daniel her shoes. It was determined that pt would be safer to have a shower chair at home for showering at this time. Pt to go home with 's assist . Goals Patient/Caregiver Education Goal Demonstrate Post-Op Precautions,Caregiver Independent Assisting Patient Days to Meet Goals 1 Frequency of Treatment Frequency Of Treatment Once a Day Treatment Plan OT Treatment Plan ADL Training,Functional Mobility,Patient/Family Education,Discharge Planning Discharge Recommendations OT Discharge Recommendations Home with Assistance Home Equipment Needs Shower chair Transportation Needs at Discharge Private Vehicle
[2020-05-24] MEDS: GABAPENTIN 600 MG TABLET PO (12:03)
--- NOTE | 2020-05-24 12:23 | P.DS_ITS ---
History of Present Illness History of Present Illness Date Patient Seen: 05/24/20 Time Patient Seen: 12:23 Chief complaint: Tranlaminar interbody Fusion/Lamintomy Narrative: 70-year-old female with pain in the back in the legs. She has had ongoing low back pain for many years but last fall started having increasing pain going down her legs. This goes down the anterior thigh as well as the posterolateral legs all the way to the feet. She has tried physical therapy without relief. She had an injection at [facility] but saw no change in symptoms with this. Her left leg is worse than the right. She has some longstanding numbness along the posterolateral left calf to the foot. The back pain bothers her primarily with activity. The leg pain bothers her whenever she tries to stand or walk. The leg and back were equal to each other. She has tried anti-inflammatories, gabapentin, amitriptyline, and [place] as well. Discharge Providers Provider Date of admission: 05/23/20 11:45 Discharge Date: 05/24/20 Consults: 05/22/20 12:35 Consult to Occupational Therapy Evaluate & Treat Comment: Physician Instructions: Evaluate and treat Consult to Physical Therapy Evaluate & Treat Comment: Physician Instructions: Evaluate and Treat 05/22/20 12:55 Consult to Respiratory Therapy Evaluate & Treat Comment: Please bring IS and do teaching with this patient Physician Instructions: Evaluate and treat 05/24/20 08:44 Consult to Physical Therapy Evaluate & Treat Comment: Physician Instructions: FWW For Home Use Discharge provider: Aly Rodgers MD Summary Hospital Course Discharge Diagnosis: Lumbar stenosis Hospital Course: She was brought to the operating room on 05/22/20 where she underwent a L4 through S1 laminectomy and instrumented fusion. Postoperatively she had significant nausea the 1st day and a fair amount of pain. The nausea resolved and she was doing better with pain medication. She was up mobilizing well with physical therapy by date of discharge. Status at Discharge Cognitive/behavioral status at discharge: oriented Functional status at discharge: uses cane/walker Overall status at discharge: patient is progressing back to baseline Exam Vital Signs (past 8 hours): - 05/24/20 08:00 Temperature 98.5 F Pulse Rate 96 H Respiratory Rate 16 Blood Pressure 119/75 Pulse Oximetry 97 Oxygen Delivery Method Room Air Oxygen Flow Rate 0 Const Orientation: alert and oriented x3 Back/Spine/Pelvis Other: CDI. 5/5 motor both lower extremities Objective Labs Result Diagrams: 05/23/20 05:10 Discharge Plan Discharge Plan Patient Disposition: Home Discharge comment: Follow-up 1.5 weeks. Discharge orders & Medications Prescriptions: New celecoxib [Celebrex] 200 mg Capsule 200 mg PO BID PRN (Reason: pain) Qty: 60 RF: 0 docusate sodium [DOK] 100 mg Capsule 100 mg PO BID PRN (Reason: constipation) Qty: 30 RF: 0 hydrocodone-acetaminophen 5-325 mg Tablet See Rx Instructions .ROUTE .COMPLEX PRN (Reason: Pain, Moderate (4-6)) Qty: 40 RF: 0 hydroxyzine pamoate 25 mg Capsule 25 mg PO Q4HR PRN (Reason: spasms) Qty: 20 RF: 0 Continued amitriptyline 25 mg Tablet 50 mg PO BEDTIME RF: 0 gabapentin 300 mg Capsule 300 mg PO SEEINSTR RF: 0 metronidazole 0.75 % Gel 1 applic TOPICAL BID PRN (Reason: Rosacea) RF: 0 alpha lipoic acid 300 mg Capsule 300 mg PO BID RF: 0 Discontinued naproxen sodium [Aleve] 220 mg Capsule 440 mg PO BID PRN (Reason: Pain) RF: 0 Discharge Health Status Multidrug resistant organism: No MDRO Diet/Activity/Treatments Diet: Diet as Tolerated Activity: Limited bending, twisting, lifting, 10 lb maximum left Skin/Wound/Dressing Care Report to your healthcare provider any signs of infection, such as:: chills, fever, night sweats, increased pain, unusual drainage and unusual redness Dressing: May change dressing and shower on Thursday Visit Report/Discharge Packet Instructions: DI for Prescription Opioid Use, Celecoxib, DI for Transforaminal Lumbar Interbody Fusion Stand Alone Forms: Surgery Discharge Quality VTE Deep Vein Thrombosis/Pulmonary Embolism Present on Admission: No
--- NOTE | 2020-05-24 12:49 | PC.NURSE ---
Pt is dressed and ready for discharge home with Spouse. IV has been removed. Went over d/c instructions with Pt and Spouse - discussed d/c meds, time of last dose, reviewed stroke education, s/s of infection, reminded Pt about drinking plenty of fluids to prevent constipation or dehydration, following back precautions, no driving while taking narcotics, and follow up appointment. Pt and Spouse denied further questions and Pt was taken out via w/c by [employer] to POV with Spouse and all belongings.
== END 2020-05-24 12:52 | disposition home or self-care (01) | DRG 455 ==
LOC: OR 12:42 → AC 12:42
PROVIDERS: Admitting Provider Orthopaedic Surgery; Referring Provider Orthopaedic Surgery; Visit Provider Orthopaedic Surgery
DX: M41.26 Other idiopathic scoliosis, lumbar region (principal); M48.061 Spinal stenosis, lumbar region without neurogenic claudication; R11.2 Nausea with vomiting, unspecified; G62.9 Polyneuropathy, unspecified; G89.18 Other acute postprocedural pain
CPT/HCPCS: 36415; 72100; 76000; 85014; 85018; 94760; 94762; 97116; 97161; 97165; 97530; 97535; C1776; J0330; J0595; J0690; J0780; J1100; J1170; J1885; J2250; J2274; J2405; J2704; J2765; J3010